=== PATIENT | female | born 1940 | race Caucasian/White ===

== ENCOUNTER 2016-11-23 16:22 | Emergency (ER) | payer MEDICARE, OTHER | END 2016-11-23 18:44 | disposition home or self-care (01) | LOC: ED 16:22 | DX: S90.112A Contusion of left great toe without damage to nail, initial encounter (principal); E11.610 Type 2 diabetes mellitus with diabetic neuropathic arthropathy; I10 Essential (primary) hypertension; Z79.4 Long term (current) use of insulin; Z79.84 Long term (current) use of oral hypoglycemic drugs; Z79.01 Long term (current) use of anticoagulants; X58.XXXA Exposure to other specified factors, initial encounter; Y92.9 Unspecified place or not applicable ==